=== PATIENT | female | born 1960 | race Caucasian/White ===

== ENCOUNTER 2023-09-21 06:13 | Day surgery (SDC) | payer OTHER, MEDICAID, SELFPAY ==
[2023-09-13 13:48] VITALS: BMI 37.0
[2023-09-21] VITALS (10 sets, daily range): BP systolic 110–176; BP diastolic 50–94; PULSE 80–99; RESP 16–20; TEMP 36.2–36.8; O2SAT 96–100; BMI 35.9
--- NOTE | 2023-09-21 06:00 | DI.RAD.S_ITS ---
PROCEDURE: XR KNEE LT 1TO2V INDICATIONS: left TKA TECHNIQUE: 2 view(s) of the knee acquired. COMPARISON: [facility] JIMMY Thomas, XR BONE LENGTH SCANOGRAM, 09/12/2023, 16:30. FINDINGS: Bones: Artifact from overlying material limits finer bony detail. Patient is status post knee joint arthroplasty. Hardware components are in expected positions. Visualized bony structures are intact. Soft tissues: Overlying postoperative changes are noted. IMPRESSION: Expected post-operative appearance of a knee arthroplasty. Dictated by: Brett Henriquez M.D. on 09/21/2023 at 12:49 Approved by: Brett Henriquez M.D. on 09/21/2023 at 12:50
[2023-09-21] MEDS: ACETAMINOPHEN 325 MG TABLET 975 MG PO (07:17)
[2023-09-21] MEDS: LACTATED RINGERS 1,000 ML 42 ML IV ×2 (07:17→10:22)
--- NOTE | 2023-09-21 07:39 | PM.PREOP ---
Pre-operative Note Interval Note History & Physical reviewed/Exam performed by Physician: Yes Changes to H&P: No
[2023-09-21] MEDS: CEFAZOLIN 2 GM/100 ML PREMIX 100 ML IV ×3 (07:50→23:59)
[2023-09-21] MEDS: TRANEXAMIC ACID 1,000 MG VIAL 1000 MG INJ (08:00)
--- NOTE | 2023-09-21 08:29 | SUR.OPER ---
Supine on padded OR bed, head on pillow, arms secured on padded arm boards at <90 degrees abduction, legs uncrossed, safety belt at thigh, tape over blanket over lower RIGHT LEG.
[2023-09-21] MEDS: ROPIVACAINE/EPI/CLONIDINE/KET 50 ML SYRINGE INJ (08:34)
--- NOTE | 2023-09-21 10:16 | P.OP_ITS ---
Operative Date/Time/Diagnoses Date of procedure: 09/21/23 Pre-op diagnosis: Left knee arthritis Post-op diagnosis: same Procedure & Clinicians Procedure: Left total knee arthroplasty (63058) Same procedure as scheduled: Yes Surgeon: Aj Arreaga Slide Machine Tender: Saima Marquez Anesthesia Type: Spinal, Sedation, Peripheral nerve block and Local Operative Notes Estimated Blood Loss (mL): 150 Tourniquet time (min): 76 Procedure in detail: Implants: Jostin Persona Medial Congruent Total Knee Arthroplasty: * Size 5 Cruciate Retaining Femoral Component * Size D Tibial Component with 14 mm x 30 mm stem extension * Size 16 Medial Congruent Polyethylene Insert * Unresurfaced Patella Procedure Summary: Significant medial wear resulted in a very thin cut on the medial side with a large cut on the lateral side. This was double-checked after making the cut and was in neutral mechanical alignment. Gap testing in extension noted 7? of tightness medially. This was addressed with a posterior medial release as well as resection of medial tibial osteophytes. This reduced the imbalance to 5? of tightness medially. I therefore recut the tibia in 2? of additional varus. This reduced the imbalance to 3? of tightness medially. As there were large posterior osteophytes I felt that eventual resection of those would result in improved balance in extension. I therefore moved to flexion. Because of the significant amount of medial wear as well as the recut on the medial side, the tensioner opened to 14 mm with 40 lb of pressure. I set the flexion gap with 40 lb of pressure as well and drilled 14 mm holes. Balance was appropriate with a 16 mm polyethylene trial. After final cementation I did trial with an 18 mm polyethylene however I found that this put excessive tension on the extensor mechanism. I therefore implanted a 16 mm medial congruent polyethylene. Procedure in Detail: This patient was seen preoperatively and evaluated for knee pain which was refractory to numerous nonoperative treatment modalities. Their hip pain correlated with radiographic changes demonstrating significant degeneration in the knee joint. The risks and benefits of continued nonoperative management versus operative management were discussed at length and all of the patient?s questions were answered. Additional educational materials providing further details beyond our discussion in clinic were provided via a publicly available patient education video which included the incidence of medical complications associated with total knee arthroplasty, reasons for revision following total knee arthroplasty, and patient satisfaction rates following total knee arthroplasty. That video can be accessed at [email or web address] . With this understanding of the risks inherent to the procedure, the patient elected to move forward with operative management. Following preoperative optimization, the patient was scheduled for surgery. The patient was met in the preoperative holding area the day of the procedure and all questions were answered. The patient?s nares were swabbed with betadine in order to decolonize them from MRSA. Informed consent was signed and the operative limb was marked with indelible ink.? The patient was brought back to the operating room where anesthesia was induced. The patient was transferred to the operating table and all bony prominences were padded. The operative site was prepped and draped in the usual sterile fashion. A second prep stick was utilized following drape placement. The incision was marked corresponding to the medial aspect of the tibial tubercle and the patella. Ioban was wrapped circumferentially around the knee. Prior to incision, tranexamic acid and cefazolin were administered. Templating images were displayed. A timeout procedure was performed verifying the patient?s identity, medical comorbidities, allergies, relevant medications, anesthesia type and the surgical plan. All present were in agreement. The assistance of a physician grants assistant was required for positioning, room setup, soft tissue retraction and wound closure. Without this assistance, the procedure would have been significantly more challenging and time consuming.?? The tourniquet was inflated prior to incision. I made an anterior incision over the knee, dissected through the subcutaneous tissues and identified the lateral border of the VMO. Medial and lateral soft tissue flaps were developed. A medial parapatellar arthrotomy was performed ensuring that adequate capsular tissue would remain for closure at the conclusion of the procedure. The hip was brought into extension and the medial soft tissues were released off the joint line of the tibia. Tissue overlying the distal anterior femur was released to allow for later assessment for anterior notching but left in place. A portion of the retropatellar fat pad was excised while protecting the patellar tendon. The patella was everted. The patella was not resurfaced. Osteophytes were excised and a lateral facetectomy was performed. The patella was released from its everted position.?? I flexed the knee to 90 degrees and placed retractors to allow access to the notch. An opening reamer was used to gain access to the femoral canal and an intramedullary familia was introduced into the canal. Diaphyseal fit was obtained in order to allow a distal femoral resection at 5 degrees relative to the anatomic axis, thereby aiming to achieve mechanical alignment of the eventual implant. A +1 resection was planned and assessed using an jose wing. I then made the cut using a sagittal saw. This provided additional access to the femoral notch. The ACL and PCL were excised. Retractors were placed on the lateral and medial tibia. I hyperflexed the knee while externally rotating it to sublux the tibia anteriorly. I placed a PCL retractor posteriorly and used this to provide additional anterior subluxation. The remainder of the PCL root was released. An intramedullary reamer was used in the ACL footprint to provide access to the tibial canal. An extramedullary guide was positioned to allow a resection perpendicular to the anatomic and mechanical axes of the tibia, thereby aiming to achieve mechanical alignment of the eventual implant. A +4 resection off the medial tibia was planned and the tibial cutting jig was pinned in place. I evaluated the cut depth, varus-valgus alignment and slope of the planned tibial resection and deemed them satisfactory. I cut the tibia with a sagittal saw while using retractors to protect the MCL, patellar tendon, and posterolateral structures.? The knee was repositioned in extension and the Fuzion soft tissue balancing gauge was introduced. This demonstrated that imbalance. This was addressed with a posterior medial release and subsequently we cutting the tibia in 2? of additional varus. After these were performed, there was still slight tightness medially of approximately 3?. The tensioner would open to approximately 5 medially and approximately 9 laterally. I felt that this would improve with posterior osteophyte resection. When 40 pounds of force was applied to the Fuzion device, the extension gap opened to 14 mm. I moved the knee into 90 degrees of flexion, and the Fuzion device was recalibrated by removing a 9 mm myke to allow assessment of the flexion gap. The Fuzion was placed perpendicular to the resected surface of the tibia and the resected surface of the distal femur. Forty pounds of traction was applied to match the tension of the extension gap. This externally rotated the femur to 7 degrees. Pins were placed in the 14 mm holes. The measured resection guide was placed over the pins to allow sizing. Appropriate sizing was determined and a 4-in-1 block was placed. This was double checked using the Fuzion device to ensure that it would open to an equal distance as the extension gap when the same amount of force was appli ed. The Fuzion block was also used to assess flexion gap symmetry. An jose wing was used to ensure there would be no anterior notching. Retractors were placed to protect the soft tissues during resection. Captured cuts were performed with a sagittal saw for the anterior and posterior femur as well as the corresponding chamfers.? Trial components were placed and the construct was assessed. Range of motion was assessed by ensuring the knee could achieve full extension and assessing maximum passive knee flexion by elevating the femur and allowing the heel to passively fall towards the buttock. Gap symmetry was assessed by stressing the medial and lateral compartments in both extension and flexion. Laxity was assessed in both extension and flexion and the polyethylene trial was adjusted with shims as necessary. Patellar tracking was assessed with knee flexion. Once satisfied with the construct, I moved forward with implant insertion. Lug holes were drilled in the femur and the tibia was prepped ensuring appropriate sizing and rotation relative to the tibial tubercle.?? The bony ends were irrigated and cement was prepared. Portions of the anterior chamfer cut were utilized as cement restrictors in the femur and tibia where intramedullar rods had been utilized. Cement was placed on the entirety of the undersurface of both the tibial and femoral components. Cement was placed onto the dry tibia and pressurized into the cancellous bone. I impacted the tibial component into place. Cement was removed. The tibia was reduced underneath the femur and placed cement onto the dry surface of the resected femur. I placed the femoral component as well as the intended polyethylene trial. Cement was removed from around the femur. I brought the knee into extension and manually pressurize d the construct by pushing on the heel while the cement dried. The knee was bathed in a dilute mixture of betadine and peroxide. A mixture of Ropivacaine, Epinephrine, Clonidine and Toradol was infiltrated throughout the soft tissues into structures including the VMO, patellar tendon, quadriceps tendon, MCL and femoral periosteum. A low adductor canal block was also performed using this mixture unless one had been placed preoperatively by anesthesia. The knee was copiously irrigated with pulse lavage. Once cement had been allowed to dry the knee was again trialed. Range of motion was assessed by ensuring the knee could achieve full extension and assessing maximum passive knee flexion by elevating the femur and allowing the heel to passively fall towards the buttock. Gap symmetry was assessed by stressing the medial and lateral compartments in both extension and flexion. Laxity was assessed in both extension and flexion and the polyethylene trial was adjusted with shims as necessary. Patellar tracking was assessed with knee flexion. The tourniquet was let down and the polyethylene trial was removed. I inspected the knee inspected for excess cement and any residual bleeding. Once hemostasis was achieved I inserted the final polyethylene and ensured appropriate engagement of the dovetail locking mechanism.?? The arthrotomy was closed with absorbable interrupted suture ensuring that this extended to the top of the arthrotomy. This was backed up with running barbed suture throughout the arthrotomy. The skin was closed with 2-0 and 3-0 sutures. Surgical glue was applied and a soft dressing was placed.?The sponge, instrument and needle counts were reported as being correct at the end of the case.??No obvious complications occurred. The patient was transferred from the operating table back to a stretcher. The patient emerged from anesthesia without difficulty and was taken to the PACU in a stable condition.? Plan for aftercare: * Weightbearing as tolerated * Mobilization as soon as the patient has recovered from anesthesia. If physical therapists are unavailable at the time the patient is ready to ambulate, then nursing staff should help patient ambulate * Aspirin 81 twice per day for DVT prophylaxis * Multimodal pain regimen with no IV opioids ordered * Anticipate discharge home most likely tomorrow * Follow up at [facility] in 2 weeks * Detailed postoperative instructions available at [email or web address]
--- NOTE | 2023-09-21 11:36 | PC.NURSE ---
Pt arrived from PACU at 1105, A&Ox4, no c/o pain, VSS on RA. Tuan wrap dressing to L knee intact, ice machine in place. C/o tingling to L foot but able to wiggle toes. Lungs CTA, no SOB, no N/V. Patient and family member oriented to room and call light. SCDs on, bed in low position, call light within reach.
[2023-09-21] MEDS: ACETAMINOPHEN 325 MG TABLET 650 MG PO ×3 (11:40→23:58)
[2023-09-21] MEDS: LACTATED RINGERS 1,000 ML 100 ML IV ×2 (11:41→21:30)
[2023-09-21] MEDS: TRAMADOL 50 MG TABLET PO (12:13)
--- NOTE | 2023-09-21 13:10 | PT.IIE ---
Current Diagnoses Unilateral primary osteoarthritis, left knee (09/21/23) Surgery Performed Operation Date: 09/21/23 07:45 Actual Procedures p Total Knee Arthroplasty(Left) - Aj Arreaga MD Surgical History (Last Updated 09/14/23 @ 07:42 by Franchesca Barrios RN) H/O: hysterectomy (2012) History of 2 sections History of gynecologic surgery Hx of parathyroidectomy (12/17/20) Hx of tonsillectomy Medical History (Last Updated 09/14/23 @ 07:42 by Franchesca Barrios RN) Acid reflux ADHD Anxiety Asthma Auditory hallucination Chronic kidney disease (CKD) Cognitive changes Depression Diverticulitis Elevated blood pressure reading without diagnosis of hypertension Fibromyalgia Hemorrhage of vocal cord History of multiple pulmonary nodules HLD (hyperlipidemia) Kidney stone Memory deficit Mild cognitive impairment Osteoarthritis PFO (patent foramen ovale) PTSD (post-traumatic stress disorder) TBI (traumatic brain injury) (2009) Physical Therapy Inpatient Evaluation/Re-Eval M1 PT/OT-IP Prior Functional Status Start: 09/21/23 15:25 Freq: NEEDED Status: Active Protocol: Document 09/21/23 13:10 AB (Rec: 09/21/23 15:40 AB [id number]) Medical Review Prior Functional Status Medical History Reviewed Yes Communication able to make needs known Mobility and Gait pt stated that she was modified independent with all mobilities and ambulation usint a SPC Social History Household Members friend(s) Living Arrangements House Number of Floors (Floors) One Floor Number of Stairs To Enter/Railing? 2 platform steps to enter the house Home Environment Standard Height Toilet,Tub/ Shower Home Equipment Front Wheel Walker,Four Wheel Walker,Straight Cane,Shower Seat with Backrest,Hand Held Shower Additional Social History Comment pt has a roommate/best friend Samy who will assist her at home pt has outpt PT set up M2 PT-IP Current Condition Start: 09/21/23 15:25 Freq: NEEDED Status: Active Protocol: Document 09/21/23 13:10 AB (Rec: 09/21/23 15:40 AB [id number]) Physical Therapy Current Condition Current Condition Evaluation Date 09/21/23 Treatment Diagnosis s/p L TKA; difficulty in walking Onset Date 09/21/23 M3 PT-IP Subjective Start: 09/21/23 15:25 Freq: NEEDED Status: Active Protocol: Document 09/21/23 13:10 AB (Rec: 09/21/23 15:40 AB [id number]) Subjective Physical Therapy Visit Type Type Initial Evaluation Visit Start Time 13:10 Visit Stop Time 14:25 Number of CYLINDER DEVALVER Visits 0 Physical Therapy Visit Comments Patient Comments agreeable to do PT Therapy Pain Assessment Pain When Pain Assessed At Rest Pain Present Pain Present Pain Reported Location L knee Intensity 4 Scale Used increases to 6/10 with movement Pain Behaviors Guarding,Holding Area Pain Management Techniques Apply Cold,Distraction, Modification of Treatment,Re- positioning,Timing of Activity with Medications M4 PT-IP Mobility and Gait Start: 09/21/23 15:25 Freq: NEEDED Status: Active Protocol: Document 09/21/23 13:10 AB (Rec: 09/21/23 15:40 [id number]) PT-Bed Mobility Assessment Supine to Sit Supine to Sit Standby Assistance PT-Transfer Assessment Sit to and From Stand Sit to and from Stand Contact Guard Assistance,1 Person Assistance,Use of Upper Extremities Equipment Transfer Assistive Device Gait Belt,Front Wheeled Walker Orthotic/Prosthetic Devices or Brace: No Transfers Transfer Destination Chair Transfer Technique ambulated Transfer Ability Level of Assist Contact Guard Assistance,Use of Upper Extremities Comments Mobility Comments pt supine in bed and agreeable to do PT. pt's friend Samy in room and will be assisting pt at home. obtained PLOF and home set up from pt. Completed heel slides prior to mobility and educated pt's friend on how to assist pt. pt completed supine to sit SBA . able to sit on EOB CGA. slight posterior lean needing repeated cues to keep body centered. post-op folder provided to pt and reviewed contents. reviewed HEP with pt. pt completed sit to stand CGA and ambulated ~ 8 ft in room using FWW CGA. pt sat on the EOB. pt agreed to do stairs. educated pt and friend on stair climbing techniques. caregiver training conducted. educated friend on how to use safety belt and how to assist pt. friend was able to put safety belt on pt, assisted pt with sit to stand and ambulated pt towards platform step. pt completed up/down platform step using FWW min A with friend assisting but required cues from PT for techniques and safety. pt repeated again with friend providing cues. pt ambulated back to her room ~ 35 ft using fWW CGA. completed sit to supine SBA. positioned pt in bed. Left pt with OT. Gait Assessment Gait Gait Assistance Required: Contact Guard Assist Distance (Feet) 35 Able to Maintain Weight Bearing Status Yes During Gait Assistive Devices Assistive Device Gait Belt,Front Wheeled Walker Orthotic/Prosthetic Devices or Brace: No Gait Deviations General Gait Pattern Antalgic,Decreased Stride Length,Decreased Feet Clearance,Step-to Gait Factors Limiting Gait Function Factors Limiting Gait Function Decreased Activity Tolerance, Decreased Strength,Limited Range of Motion,Pain,Poor Balance,Poor Safety Awareness Stair Climbing Assessment Evaluation Level of Assist On Stairs Minimal Assistance Devices Stair Climbing Assistive Devices Front Wheel Walker Technique/Endurance Stair Climbing Direction Ascend and Descend Stair Climbing Technique Step to Step Number of Steps Climbed 1 Query Text: Stair Climbing Set # Repetitions (reps) 2 PT-Balance Assessment Sitting Balance and Reactions Static Sitting Balance Ability Normal Dynamic Sitting Balance Ability Good Standing Balance and Reactions Static Standing Balance Ability Fair Dynamic Standing Balance Ability Fair Device Used FWW M5 PT-IP Objective Assessments Start: 09/21/23 15:25 Freq: NEEDED Status: Active Protocol: Document 09/21/23 13:10 AB (Rec: 09/21/23 15:40 AB [id number]) Orientation Orientation/Cognition Level of Alertness Alert Orientation Place,Situation Language Function Ability No Deficits Noted Safety Awareness Decreased Safety Awareness Memory Description No Deficits Noted Gross Range of Motion Lower Extremity ROM Assessment Left Impaired Impairments L knee flexion: ~ 50 deg Strength Lower Extremity Strength Assessment Left Impaired Hip 4-/5 Knee 3+/5 Sensation Assessment Sensation Gross Sensation WNL Muscle Tone Muscle Tone WNL Yes M6 PT-IP Treatment Start: 09/21/23 15:25 Freq: NEEDED Status: Active Protocol: Document 09/21/23 13:10 AB (Rec: 09/21/23 15:40 AB [id number]) Physical Therapy Treatment Education Education Provided Precautions,Weight Bearing Status,Post-Op Packet,Safety M7 PT-IP Assessment and Plan Start: 09/21/23 15:25 Freq: NEEDED Status: Active Protocol: Document 09/21/23 13:10 AB (Rec: 09/21/23 15:40 AB [id number]) PT Summary Assessment and Plan Potential Rehabilitation Potential Fair Status of Condition at Evaluation Evolving Summary Impairments Pain,ROM,Strength,Balance, Coordination,Sensation,Tone, Cognition,Bed Mobility, Transfers,Gait,Activity Tolerance Assessment Summary Pt is a 63 y/o F s/p L TKA POD . Pt is WBAT on LLE. pt requiring CGA with transfers and ambulation using fWW and min A for stair climbing. caregiver training conducted and pt's friend was able to assist pt safely. pt with c/o increase pain with mobility requiring increase time to complete all tasks. pt may go home when medically stable. pt stated that she has outpt PT set up. Goals Bed Mobility Goal Independent Transfer Goal Independent,Front Wheeled Walker Gait Goal Independent,Front Wheel Walker Gait Distance 200 Other Goals up/down 2 platform steps mod I using FWW Days to Meet Goals 5 Frequency of Treatment Frequency Of Treatment Twice a Day Treatment Plan Physical Therapy Treatment Plan Bed Mobility Training,Transfer Training,Gait Training, Therapeutic Exercise,Balance Retraining,Post Op Education, Discharge Planning,Hot or Cold Pack,Neuromuscular Re-ed, Coordination Retraining,Manual Therapy Weight Bearing Status Weight Bearing Status Weight Bear as Tolerated Allowed Weight Bearing Amount (enter % LLE WBAT or #) (%) Recommendations To Nursing Amount of Assist Needed 1 Person Assist Discharge Recommendations PT Discharge Recommendations Home with Assistance, Outpatient PT Transportation Needs at Discharge Private Vehicle
[2023-09-21] MEDS: OXYCODONE IR 5 MG TABLET PO ×2 (14:28→21:31)
--- NOTE | 2023-09-21 14:38 | OT.IP.EVAL ---
Current Diagnoses Unilateral primary osteoarthritis, left knee (09/21/23) Surgery Performed Operation Date: 09/21/23 07:45 Actual Procedures p Total Knee Arthroplasty(Left) - Aj Arreaga MD Past Medical History (Last Updated 09/14/23 @ 07:42 by Franchesca Barrios, RN) Acid reflux ADHD Anxiety Asthma Auditory hallucination Chronic kidney disease (CKD) Cognitive changes Depression Diverticulitis Elevated blood pressure reading without diagnosis of hypertension Fibromyalgia Hemorrhage of vocal cord History of multiple pulmonary nodules HLD (hyperlipidemia) Kidney stone Memory deficit Mild cognitive impairment Osteoarthritis PFO (patent foramen ovale) PTSD (post-traumatic stress disorder) TBI (traumatic brain injury) (2009) Surgical History (Last Updated 09/14/23 @ 07:42 by Franchesca Barrios RN) H/O: hysterectomy (2012) History of 2 sections History of gynecologic surgery Hx of parathyroidectomy (12/17/20) Hx of tonsillectomy Occupational Therapy Inpatient Evaluation/Re-Eval M1 PT/OT-IP Prior Functional Status Start: 09/21/23 15:55 Freq: NEEDED Status: Active Protocol: Document 09/21/23 15:57 [facility] (Rec: 09/21/23 16:15 [facility] [id number]) Medical Review Prior Functional Status Medical History Reviewed Yes Communication able to make needs known Mobility and Gait pt stated that she was modified independent with all mobilities and ambulation using a SPC Activities of Daily Living and IADL's Pt states able to do all ADL needs on her own and was not driving due to on pain meds. Social History Household Members friend(s) Living Arrangements House Number of Floors (Floors) One Floor Number of Stairs To Enter/Railing? 2 platform steps to enter the house Home Environment Standard Height Toilet,Tub/ Shower Home Equipment Front Wheel Walker,Four Wheel Walker,Straight Cane,Shower Seat with Backrest,Hand Held Shower,Orthopaedic Nurse,Sock Aid Additional Social History Comment pt has a roommate/best friend Samy who will assist her at home pt has outpt PT set up M2 OT-IP Current Condition Start: 09/21/23 15:55 Freq: Status: Active Protocol: Document 09/21/23 15:57 [facility] (Rec: 09/21/23 16:15 [facility] [id number]) Occupational Therapy Current Condition Current Condition Evaluation Date 09/21/23 Treatment Diagnosis S/P L TKA Diagnosis Onset Date 09/21/23 M3 OT- IP Subjective and Pain Start: 09/21/23 15:55 Freq: Status: Active Protocol: Document 09/21/23 15:57 [facility] (Rec: 09/21/23 16:15 [facility] [id number]) OT- Subjective Occupational Therapy Visit Type Type Initial Evaluation Visit Start Time 13:30 Visit Stop Time 14:38 Occupational Therapy Visit Comments Patient Comments Pt agreed to get up and her friend in the room for caregiver training. Patient/Caregiver Goals TO go home. OT Pain Assessment Pain When Pain Assessed During Mobility Pain Present Pain Present Pain Reported Location L knee Intensity 6 Scale Used Numeric (0 - 10) M4 OT- IP ADL's Start: 09/21/23 15:55 Freq: Status: Active Protocol: Document 09/21/23 15:57 [facility] (Rec: 09/21/23 16:15 [facility] [id number]) OT [id number] General Evaluation Self-Feeding Ability Independent OT ADL-Grooming Comments OT Grooming Comments Not performed. OT ADL-Oral Care Comments Oral Care Comments Not performed. OT ADL-Dressing General Eval Lower Body Dressing Ability Maximum Assistance Areas Needing Assistance Socks,Shoes Comments OT Dressing Comments Able to show pt use of LB dressing equipment and practice as her friend has some to allow her to use. Educated best to dress left leg side first and take out last. Also educated pt to be careful not to twist her knee during ADL needs. OT ADL-Toileting Comments OT Toileting Comments Suggested pt call for assist to go to the bathroom at home and best to get a BSC as will be easier to come to stand and also can be placed next to the bed. OT ADL-Bathing Comments OT Bathing Comments Pt states preop PT suggested to sit down on the tub ledge and then get over to the shower chair. At this time will be safer for pt to use a tub bench or have her friends assist her. On eval pt sitting with some posterior lean initially and would be a fall risk to sit on the tub edge at this time. M5 OT- IP IADL's Start: 09/21/23 15:55 Freq: Status: Active Protocol: Document 09/21/23 15:57 [facility] (Rec: 09/21/23 16:15 [facility] [id number]) OT-Instrumental Activities of Daily Living Deficits IADL Deficits Identified Deficits Home Safety Awareness Awareness of Need for Assistance at Home Good Awareness Ability to Problem Solve Emergency Able to Problem Solve Situations Medication Management Medication Management Comments Pt's friends able to assist as needed. Money Management Money Management Comments Pt's friends able to assist as needed. Meal Preparation Meal Preparation Caregiver Provides Assist Web Engineer Web Engineer Caregiver Provides Assist M6 OT- IP Functional Cognition Start: 09/21/23 15:55 Freq: Status: Active Protocol: Document 09/21/23 15:57 [facility] (Rec: 09/21/23 16:15 [facility] [id number]) Cognitive Factors Limiting Selfcare Function Cognitive Ability Level of Alertness Alert Patient Orientation Name,Age,Birthday,Month,Date, Year,Day of Week,Place, Situation Attention Span Ability Capable of Focused Attention, Capable of Sustained Attention Cognitive Comments Cognitive Assessment Comments Pt needing vc for FWW safety and for hand placement. OT- Vision and Hearing OT- Hearing Assessment OT- Hearing Assessment WFL M7 OT- IP Mobility and Balance Start: 09/21/23 15:55 Freq: Status: Active Protocol: Document 09/21/23 15:57 [facility] (Rec: 09/21/23 16:15 [facility] [id number]) OT- Bed Mobility Assessment Supine to Sit Supine to Sit Assist Contact Guard Assistance OT-Transfer Assessment Sit to and From Stand Sit to and from Stand Contact Guard Assistance Transfers Transfer Ability Contact Guard Assistance Technique Transfer Destination Bed Transfer Technique Stand Step Pivot Devices Transfer Assistive Devices Gait Belt,Front Wheeled Walker Comments Mobility Comments CGA for sit to stand to the FWW and for the transfer. Pt's friend able to safely assist for for all mobility needs. OT- Balance Assessment Sitting Balance and Reactions Static Sitting Balance Ability Good Dynamic Sitting Balance Ability Fair Standing Balance and Reactions Static Standing Balance Ability Fair Dynamic Standing Balance Ability Fair M8 OT- IP Objective Assessments Start: 09/21/23 15:55 Freq: Status: Active Protocol: Document 09/21/23 15:57 [facility] (Rec: 09/21/23 16:15 [facility] [id number]) OT Gross Range of Motion Upper Extremity Range of Motion Assessment Within Functional Limits OT Strength Upper Extremity Strength Assessment Within Functional Limits M9 OT- IP Assessment and Plan Start: 09/21/23 15:55 Freq: Status: Active Protocol: Document 09/21/23 15:57 [facility] (Rec: 09/21/23 16:15 [facility] [id number]) OT Summary Assessment and Plan Potential Rehabilitation Potential Good Analytic Complexity at Evaluation Low Summary OT Impairments Pain,Balance,Functional Mobility,Dressing,Toileting, Bathing,Toilet Transfers, Shower Transfers Progress Towards Goals Progressing Toward Goals Assessment Summary Pt low complexity and main barriers are pain and will be needing assist for ADl and mobility needs at this time as a little unsteady on her feet . Pt's friend to be with her for the next week and other friends to check on her and assist. Pt will benefit from a BSC, tub bench if not able to get her LLE over the tub and borrow her friend's LB dressing equipment. Pt to go home with assist and have outpt PT. Goals Grooming Goal Independent Dressing Goal Independent Toileting Goal Independent Bathing Goal Independent Toilet Transfer Goal Independent Shower Transfer Goal Independent Days to Meet Goals 7 Frequency of Treatment Frequency Of Treatment Once a Day Treatment Plan OT Treatment Plan ADL Training,Functional Mobility,Patient/Family Education,Discharge Planning Discharge Recommendations OT Discharge Recommendations Home with Assistance, Outpatient PT Home Equipment Needs BSC, tub bench Transportation Needs at Discharge Private Vehicle
[2023-09-21] MEDS: ZIPRASIDONE HCL 80 MG 80 EACH PO (19:02)
[2023-09-21] MEDS: ASPIRIN EC 81 MG TABLET PO (21:30)
[2023-09-21] MEDS: TOPIRAMATE 25 MG TABLET PO (21:30)
[2023-09-21] MEDS: DOCUSATE 100 MG CAPSULE PO (21:31)
[2023-09-21] MEDS: ATORVASTATIN 20 MG TABLET 10 MG PO (21:31)
[2023-09-21] MEDS: hydrOXYzine HCL 25 MG TABLET 100 MG PO (21:32)
[2023-09-22] VITALS: BP 136/80; PULSE 72; RESP 16; TEMP 37; O2SAT 96
[2023-09-22] MEDS: OXYCODONE IR 5 MG TABLET PO (03:17)
[2023-09-22 05:00] VITALS: BP 136/74; PULSE 66; RESP 16; TEMP 36.6; O2SAT 97
[2023-09-22] MEDS: ACETAMINOPHEN 325 MG TABLET 650 MG PO ×2 (05:41→10:41)
[2023-09-22] MEDS: PANTOPRAZOLE DR 20 MG TABLET PO (05:41)
[2023-09-22 05:42] LABS: Hematocrit 31.3 % (36-46); Hemoglobin 10.8 g/dL (12.0-16.0)
[2023-09-22 08:00] VITALS: BP 115/57; PULSE 75; RESP 20; TEMP 35.8; O2SAT 100
[2023-09-22] MEDS: ASPIRIN EC 81 MG TABLET PO (08:39)
[2023-09-22] MEDS: FOLIC ACID 1 MG TABLET 0.5 MG PO (08:39)
[2023-09-22] MEDS: DOCUSATE 100 MG CAPSULE PO (08:40)
[2023-09-22] MEDS: TRAMADOL 50 MG TABLET PO (08:40)
[2023-09-22] MEDS: polyethylene glycoL 3350 17 GM POWD.PACK PO (08:40)
--- NOTE | 2023-09-22 08:50 | PT.IPTN ---
Current Diagnoses Unilateral primary osteoarthritis, left knee (09/21/23) Surgery Performed Operation Date: 09/21/23 07:45 Actual Procedures p Total Knee Arthroplasty(Left) - Aj Arreaga MD Physical Therapy Treatment Note M2 PT-IP Current Condition Start: 09/21/23 15:25 Freq: NEEDED Status: Active Protocol: Document 09/21/23 13:10 [facility] (Rec: 09/21/23 15:40 [facility] [id number]) Physical Therapy Current Condition Current Condition Evaluation Date 09/21/23 Treatment Diagnosis s/p L TKA; difficulty in walking Onset Date 09/21/23 M3 PT-IP Subjective Start: 09/21/23 15:25 Freq: NEEDED Status: Active Protocol: Document 09/22/23 09:25 Z[facility] (Rec: 09/22/23 09:38 [facility] [id number]) Subjective Physical Therapy Visit Type Type Treatment Note Visit Start Time 08:50 Visit Stop Time 09:23 Number of SHOW HOST OR HOSTESS Visits 1 Physical Therapy Visit Comments Patient Comments Pt reports that she just received her pain meds and is agreeable to therapy. Therapy Pain Assessment Pain When Pain Assessed During Mobility Location L knee Pain Management Techniques Apply Cold,Distraction, Modification of Treatment,Re- positioning,Timing of Activity with Medications M4 PT-IP Mobility and Gait Start: 09/21/23 15:25 Freq: NEEDED Status: Active Protocol: Document 09/22/23 09:25 ZF (Rec: 09/22/23 09:38 ZF [id number]) PT-Bed Mobility Assessment Sit to Supine Sit to Supine Standby Assistance PT-Transfer Assessment Sit to and From Stand Sit to and from Stand Contact Guard Assistance,1 Person Assistance,Use of Upper Extremities Equipment Transfer Assistive Device Gait Belt,Front Wheeled Walker Orthotic/Prosthetic Devices or Brace: No Transfers Transfer Destination Bed Transfer Technique Stand Step Pivot Transfer Ability Level of Assist Contact Guard Assistance,1 Person Assistance,Use of Upper Extremities Comments Mobility Comments Pt in recliner with ice compression device on L LE. Pt agreeable to therapy. Pt's friend in room and will be providing assist at home. He donns gait belt and provides CGA for STS from recliner. Pt amb x20', x35' in room w/2ww, CGA. Pt asc/maryan one platform step using 2ww, w/CGA provided by friend. Therapist providing cues for proper foot position and AD positioning, w/good carryover. Pt declines second trial due to discomfort , but both patient and friend report feeling good about managing the x2 steps at home. Pt returns to bed, Sitting EOB>Supine is SBA. Reviewed HEP w/patient, she completes heel slides, SLR, SAQ x10 reps . Vitals monitored w/activity and remained WNL. Repositioned ice cuff on L LE, call light within reach, all needs met. Gait Assessment Gait Gait Assistance Required: Contact Guard Assist Distance (Feet) 55 Able to Maintain Weight Bearing Status Yes During Gait Assistive Devices Assistive Device Gait Belt,Front Wheeled Walker Orthotic/Prosthetic Devices or Brace: No Gait Deviations General Gait Pattern Antalgic,Decreased Stride Length,Decreased Feet Clearance,Step-to Gait Factors Limiting Gait Function Factors Limiting Gait Function Decreased Activity Tolerance, Decreased Strength,Limited Range of Motion,Pain,Poor Balance,Poor Safety Awareness Stair Climbing Assessment Evaluation Level of Assist On Stairs Contact Guard Assistance Devices Stair Climbing Assistive Devices Front Wheel Walker Technique/Endurance Stair Climbing Direction Ascend and Descend Stair Climbing Technique Step to Step Number of Steps Climbed 1 Stair Climbing Set # Repetitions (reps) 1 PT-Balance Assessment Sitting Balance and Reactions Static Sitting Balance Ability Good Dynamic Sitting Balance Ability Fair Standing Balance and Reactions Static Standing Balance Ability Fair Dynamic Standing Balance Ability Fair Device Used FWW M5 PT-IP Objective Assessments Start: 09/21/23 15:25 Freq: NEEDED Status: Active Protocol: Document 09/21/23 13:10 [facility] (Rec: 09/21/23 15:40 [facility] [id number]) Orientation Orientation/Cognition Level of Alertness Alert Orientation Place,Situation Language Function Ability No Deficits Noted Safety Awareness Decreased Safety Awareness Memory Description No Deficits Noted Gross Range of Motion Lower Extremity ROM Assessment Left Impaired Impairments L knee flexion: ~ 50 deg Strength Lower Extremity Strength Assessment Left Impaired Hip 4-/5 Knee 3+/5 Sensation Assessment Sensation Gross Sensation WNL Muscle Tone Muscle Tone WNL Yes M6 PT-IP Treatment Start: 09/21/23 15:25 Freq: NEEDED Status: Active Protocol: Document 09/22/23 09:25 ZF (Rec: 09/22/23 09:38 ZF [id number]) Physical Therapy Treatment Education Education Provided Precautions,Weight Bearing Status,Safety M7 PT-IP Assessment and Plan Start: 09/21/23 15:25 Freq: NEEDED Status: Active Protocol: Document 09/22/23 09:25 [facility] (Rec: 09/22/23 09:38 ZF [id number]) PT Summary Assessment and Plan Potential Rehabilitation Potential Fair Summary Impairments Pain,ROM,Strength,Balance, Coordination,Sensation,Tone, Cognition,Bed Mobility, Transfers,Gait,Activity Tolerance Assessment Summary Pt is CGA w/OOB mobility, SBA for bed mobility. She reports that her pain is managed. Pt's friend participated in caregiver training and is able to assist her at home. Recommending home DC w/assist and outpatient PT, which she has set up. Goals Bed Mobility Goal Independent Transfer Goal Independent,Front Wheeled Walker Gait Goal Independent,Front Wheel Walker Gait Distance 200 Other Goals up/down 2 platform steps mod I using FWW Days to Meet Goals 5 Frequency of Treatment Frequency Of Treatment Twice a Day Treatment Plan Physical Therapy Treatment Plan Bed Mobility Training,Transfer Training,Gait Training, Therapeutic Exercise,Balance Retraining,Post Op Education, Discharge Planning,Hot or Cold Pack,Neuromuscular Re-ed, Coordination Retraining,Manual Therapy Weight Bearing Status Weight Bearing Status Weight Bear as Tolerated Allowed Weight Bearing Amount (enter % LLE WBAT or #) (%) Recommendations To Nursing Amount of Assist Needed Standby Assistance Discharge Recommendations PT Discharge Recommendations Home with Assistance, Outpatient PT Transportation Needs at Discharge Private Vehicle
--- NOTE | 2023-09-22 08:59 | PM.DS.1 ---
History of Present Illness History of Present Illness Date Patient Seen: 09/22/23 Time Patient Seen: 08:59 Chief complaint: Left TKA *OPB* Narrative: Operative Date/Time/Diagnoses Date of procedure: 09/21/23 Pre-op diagnosis: Left knee arthritis Post-op diagnosis: same Procedure & Clinicians Procedure: Left total knee arthroplasty (07173) Same procedure as scheduled: Yes Surgeon: Aj Arreaga Mower Mechanic: Saima Marquez Anesthesia Type: Spinal, Sedation, Peripheral nerve block and Local Operative Notes Estimated Blood Loss (mL): 150 Tourniquet time (min): 76 Procedure in detail: Implants: Jostin Persona Medial Congruent Total Knee Arthroplasty: Size 5 Cruciate Retaining Femoral Component Size D Tibial Component with 14 mm x 30 mm stem extension Size 16 Medial Congruent Polyethylene Insert Unresurfaced Patella Discharge Providers Provider Discharge Date: 09/22/23 Primary care physician: Chloe Sena PA-C Consults: 09/21/23 06:00 Consult to Anesthesiology Routine Comment: Consulting Provider: Anesthesiologist Reason for consultation: Regional block for post operative pain control 09/21/23 11:14 Consult to Discharge Planning Routine Comment: Consult to Occupational Therapy Evaluate & Treat Comment: Physician Instructions: Evaluate and treat Consult to Physical Therapy Evaluate & Treat Comment: Physician Instructions: postop TKA protocol Discharge provider: Cierra Mcknight PA-C Summary Hospital Course Discharge Diagnosis: Left knee osteoarthritis, s/p left total knee arthroplasty Hospital Course: Ms [place] hospital course was unremarkable. On the morning of POD# 1, she was feeling well and wanted to go home. She was eating and voiding without difficulty. She was evaluated by PT and felt to be appropriate for discharge home with family. She was interviewed and examined by Dr Arreaga as well. Exam Vital Signs (past 8 hours): - 09/22/23 05:00 09/22/23 08:00 Temperature 97.8 F 96.5 F L Pulse Rate 66 75 Respiratory Rate 16 20 Blood Pressure 136/74 115/57 L Pulse Oximetry 97 100 Oxygen Flow Rate 0 0 Oxygen Delivery Method Room Air Oxygen Flow Rate 0 Narrative Exam Narrative: 5/5 strength in hip flexors, quadriceps, hamstrings, DF, PF, EHL on left. Sensation to light touch intact throughout LLE. Calf soft, compressible, nontender; SHINE over Aquacel CDI. Objective Labs 09/22/23 05:10 Labs: Laboratory Results - last 24 hr 09/22/23 05:10 Hgb 10.8 L Hct 31.3 L PFSH Medical History (Updated 09/14/23 @ 07:42 by Franchesca Barrios RN) Hemorrhage of vocal cord Osteoarthritis Cognitive changes Mild cognitive impairment TBI (traumatic brain injury) (2009) History of multiple pulmonary nodules Diverticulitis Auditory hallucination ADHD Anxiety Depression PTSD (post-traumatic stress disorder) Kidney stone Chronic kidney disease (CKD) Acid reflux PFO (patent foramen ovale) Elevated blood pressure reading without diagnosis of hypertension HLD (hyperlipidemia) Asthma Memory deficit Fibromyalgia Surgical History (Updated 09/14/23 @ 07:42 by Franchesca Barrios RN) Hx of parathyroidectomy (12/17/20) Hx of tonsillectomy H/O: hysterectomy (2012) History of gynecologic surgery History of 2 sections Social History household members: friend(s) Smoking Status: Never smoker alcohol intake: current Discharge Assessment & Plan Assessment and Plan Assessment: Left knee osteoarthritis, s/p left total knee arthroplasty Plan of Treatment: Discharge home after AM PT. Pt has d/c meds at home. ASA BID x 6 weeks for VTE prophylaxis, oupt PT, f/u in office in 2 weeks as scheduled. Discharge Plan Discharge Plan Patient Disposition: Home Discharge orders & Medications Discharge Orders: Discharge (Order); Ordered 09/22/23 Ordered By: Cierra Mcknight Prescriptions: Continued ziprasidone HCl 80 mg Capsule 80 mg PO BEDTIME Rx Instructions: give with food (meal/snack) hydroxyzine pamoate 100 mg Capsule 100 mg PO BEDTIME atorvastatin 10 mg Tablet 10 mg PO BEDTIME topiramate 25 mg Tablet 25 mg PO BEDTIME folic acid 400 mcg Tablet 0.4 mg PO BEDTIME acetaminophen 500 mg Tablet 500 - 1,000 mg PO Q6H PRN (Reason: Pain) albuterol sulfate 90 mcg/actuation Hfa Aerosol Inhaler 2 puff INHALATION Q4-6H PRN (Reason: Shortness Of Breath) omeprazole 20 mg Tablet,Delayed Release (/Ec) 20 mg PO BEDTIME Follow up/Referrals: Chloe Sena PA-C [Primary Care Provider] - Aj Arreaga MD [Physician] - 10/02/23 2:20 pm (Follow up w/ Dr Arreaga at [facility] in [facility] Diet/Activity/Treatments Diet: Diet as Tolerated Activity: Walk frequently! Weight bearing as tolerated. Cold/Heat Therapy: Ice to knee as needed for pain. Skin/Wound/Dressing Care Report to your healthcare provider any signs of infection, such as:: chills, fever, night sweats, unusual drainage and unusual redness Dressing: May remove SHINE wrap and shower on 09/24/2023. Leave dressing in place until follow up in office. No bathing or otherwise soaking incision. Call the office if the dressing becomes saturated inside. Visit Report/Discharge Packet Instructions: DI for Knee Replacement, DI for Prescription Opioid Use Stand Alone Forms: Patient Portal/API, Surgery Discharge Discharge Data Primary Care Provider: Chloe Sena Attending Provider: Aj Arreaga VTE Deep Vein Thrombosis/Pulmonary Embolism Present on Admission: No
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
== END 2023-09-22 11:25 | disposition home or self-care (01) ==
LOC: OR 06:19 → AC 06:19
PROVIDERS: Family Provider Family Medicine; PCP Physician Assistant; Referring Provider Nurse Practitioner Family; Visit Provider Orthopaedic Surgery Adult Reconstructive Orthopaedic Surgery
PROC: 0SRD0JZ Replacement of Left Knee Joint with Synthetic Substitute, Open Approach (ICD-10-PCS; CPT 27447; principal; 2023-09-21 07:45)
DX: M17.12 Unilateral primary osteoarthritis, left knee (principal); N18.32 Chronic kidney disease, stage 3b; M79.7 Fibromyalgia; E66.9 Obesity, unspecified; Z68.36 Body mass index [BMI] 36.0-36.9, adult
CPT/HCPCS: 27447; 36415; 73560; 85014; 85018; 97116; 97162; 97165; 97530; 97535; C1776; A9270; J0690; J1100; J2250; J2704; J3010

== ENCOUNTER 2024-05-09 06:07 | Day surgery (SDC) | payer OTHER, MEDICAID, SELFPAY ==
[2023-09-21 06:36] VITALS: BMI 35.9
[2024-05-08 08:49] VITALS: BMI 37.0
[2024-05-09] VITALS (11 sets, daily range): BP systolic 102–155; BP diastolic 51–86; PULSE 73–93; RESP 13–22; TEMP 36.1–37.2; O2SAT 96–100; BMI 37.9; BMI 39.1
--- NOTE | 2024-05-09 06:00 | DI.RAD.S_ITS ---
PROCEDURE: XR KNEE RT 1TO2V INDICATIONS: tka TECHNIQUE: 2 view(s) of the knee acquired. COMPARISON: [facility], CR, XR KNEE LT 1TO2V, 09/21/2023, 10:43. FINDINGS: Bones: Patient is status post knee joint arthroplasty. Hardware components are in expected positions. Visualized bony structures are intact. Soft tissues: Overlying postoperative changes are noted. IMPRESSION: Expected post-operative appearance of a knee arthroplasty. Dictated by: Kelvin Sosa M.D. on 05/10/2024 at 0:34 Approved by: Kelvin Sosa M.D. on 05/10/2024 at 0:34
[2024-05-09] MEDS: ACETAMINOPHEN 325 MG TABLET 975 MG PO ×2 (07:03→12:19)
[2024-05-09] MEDS: LACTATED RINGERS 1,000 ML 42 ML IV ×3 (07:03→13:19)
[2024-05-09] MEDS: MELOXICAM 7.5 MG TABLET 15 MG PO (07:04)
--- NOTE | 2024-05-09 07:40 | PM.PREOP ---
Pre-operative Note Interval Note History & Physical reviewed/Exam performed by Physician: Yes Changes to H&P: No
[2024-05-09] MEDS: CEFAZOLIN 2 GM/100 ML PREMIX 100 ML IV ×3 (07:41→23:34)
[2024-05-09] MEDS: TRANEXAMIC ACID 1,000 MG VIAL 2000 MG INJ ×2 (07:45→09:36)
--- NOTE | 2024-05-09 08:36 | SUR.OPER ---
Supine on padded OR bed. Pillow under head, arms secured on padded armboards <90 degree abduction. Safety belt across torso. Non-operative leg secured with tape over blanket over lower leg. Operative leg secured in Jair positioner. Foam padded brace at thigh of operative leg.
[2024-05-09] MEDS: BUPIVACAINE 0.25% (PF) 30 ML, EPINEPHrine 0.15 MG INJ (08:45)
[2024-05-09] MEDS: BUPIVACAINE LIPOSOME 266 MG/20 ML VIAL INJ (08:46)
--- NOTE | 2024-05-09 10:05 | PM.OP.1 ---
Operative Date/Time/Diagnoses Date of procedure: 05/09/24 Pre-op diagnosis: Right knee osteoarthritis Post-op diagnosis: same Procedure & Clinicians Procedure: Right total knee arthroplasty Same procedure as scheduled: Yes Surgeon: Aj Arreaga Printed Circuit Board Layout Designer: Saima Marquez Anesthesia Type: Spinal, Sedation, Peripheral nerve block and Local Operative Notes Estimated Blood Loss (mL): 200 Procedure in detail: Right Gap-Balanced Jostin Persona Medial-Congruent Primary Total Knee Arthroplasty Manipulation under anesthesia of left total knee arthroplasty Implants: Size 5 Cruciate Retaining Femoral Component Size C Tibial Component with 14 x 30 stem extension Size 14 Medial Congruent Polyethylene Insert 32 mm Patella Procedure Summary: This 64-year-old female patient required a posterior medial release on her contralateral side and ended up with a 16 mm polyethylene insert. In an attempt to end up with a smaller polyethylene insert on this side I took relatively small cuts and performed a posterior medial release. I initially took a 0 cut on the femur as she had full extension preoperatively and a 2 mm cut on the tibia. This was far too tight for me to fit in the smallest spacer block for this system so I took an additional 2 mm resection, found that it was still too tight, and took another 2 mm resection to end up with a +6 cut off of the medial side. There was still excess medial tightness at that point in time so I took a 2 mm varus recut which improved the gap balancing. She had a very large flap of cartilage on her patella with a burnished bone below and when I resected this there was a large step-off in her patellofemoral joint. As she had struggled with her rehabilitation on the other side I did not want to leave her with a potential pain generator and therefore elected intraoperatively to resurface her patella. Additionally she requested that I perform a manipulation under anesthesia of her left side prior to the surgery today. I estimated the flexion in her knee at 110? and discussed with her that the results of a manipulation under anesthesia this far out from surgery can have limited benefit, however as she was already going to be under anesthesia I did proceed with it. I used a relatively gentle technique and did not attempt to push extremely hard into flexion. I estimate that she gained 10? of passive flexion from that manipulation which I performed prior to proceeding with the total knee arthroplasty on her right side today. Procedure in Detail: This patient was seen preoperatively and evaluated for knee pain which was refractory to numerous nonoperative treatment modalities. Their pain correlated with radiographic changes demonstrating significant degeneration in the knee joint. The risks and benefits of continued nonoperative management versus operative management were discussed at length and all of the patient?s questions were answered. Additional educational materials providing further details beyond our discussion in clinic were provided via a publicly available patient education video which included the incidence of medical complications associated with total knee arthroplasty, reasons for revision following total knee arthroplasty, and patient satisfaction rates following total knee arthroplasty. That video can be accessed at [email or web address] . With this understanding of the risks inherent to the procedure, the patient elected to move forward with operative management. Following preoperative optimization, the patient was scheduled for surgery. The patient was met in the preoperative holding area the day of the procedure and all questions were answered. The patient?s nares were swabbed with betadine in order to decolonize them from MRSA. Informed consent was signed and the right limb was marked with indelible ink.? The left limb was also marked with the letters JESSICA to indicate that only a manipulation was to be performed on that side. The patient was brought back to the operating room where anesthesia was induced. The patient was transferred to the operating table and all bony prominences were padded. The operative site was prepped and draped in the usual sterile fashion. A second prep stick was utilized following drape placement. The incision was marked corresponding to the medial aspect of the tibial tubercle and the patella. Ioban was wrapped circumferentially around the knee. Prior to incision, tranexamic acid and cefazolin were administered. Templating images were displayed. A timeout procedure was performed verifying the patient?s identity, medical comorbidities, allergies, relevant medications, anesthesia type and the surgical plan. All present were in agreement. The assistance of a physician distribution center assistant was required for positioning, room setup, soft tissue retraction and wound closure. Without this assistance, the procedure would have been significantly more challenging and time consuming.?? The tourniquet was inflated prior to incision. I made an anterior incision over the knee, dissected through the subcutaneous tissues and identified the lateral border of the VMO. Medial and lateral soft tissue flaps were developed. A medial parapatellar arthrotomy was performed ensuring that adequate capsular tissue would remain for closure at the conclusion of the procedure. The hip was brought into extension and the medial soft tissues were released off the joint line of the tibia. Tissue overlying the distal anterior femur was released to allow for later assessment for anterior notching but left in place. A portion of the retropatellar fat pad was excised while protecting the patellar tendon. The patella was everted. The patella was resurfaced as I found a large flap of cartilage which after removal left a large defect and a step-off. Osteophytes were excised and a lateral facetectomy was performed. The patella was released from its everted position.?? I flexed the knee to 90 degrees and placed retractors to allow access to the notch. An opening reamer was used to gain access to the femoral canal and an intramedullary familia was introduced into the canal. Diaphyseal fit was obtained in order to allow a distal femoral resection at 5 degrees relative to the anatomic axis, thereby aiming to achieve mechanical alignment of the eventual implant. A +0 resection was planned and assessed using an jose wing. I then made the cut using a sagittal saw. This provided additional access to the femoral notch. The ACL and PCL were excised. Retractors were placed on the lateral and medial tibia. I hyperflexed the knee while externally rotating it to sublux the tibia anteriorly. I placed a PCL retractor posteriorly and used this to provide additional anterior subluxation. The remainder of the PCL root was released. An intramedullary reamer was used in the ACL footprint to provide access to the tibial canal. An extramedullary guide was positioned to allow a resection perpendicular to the anatomic and mechanical axes of the tibia, thereby aiming to achieve mechanical alignment of the eventual implant. A +2 resection off the medial tibia was planned and the tibial cutting jig was pinned in place. I evaluated the cut depth, varus-valgus alignment and slope of the planned tibial resection and deemed them satisfactory. I cut the tibia with a sagittal saw while using retractors to protect the MCL, patellar tendon, and posterolateral structures.? The knee was repositioned in extension and the Fuzion soft tissue balancing gauge was introduced. This demonstrated that it was challenging to insert with the minimal cuts that I had initially performed. I had anticipated that her soft tissues would expand significantly to accommodate a larger polyethylene and had therefore minimize my bone cuts. I at this point therefore took an additional 2 mm off the tibia to expand the extension gap. This was insufficient so I took another 2 mm. At this point I could get a 10 mm spacer block in place however I noted significant medial tightness. I therefore performed a posterior medial release and a medial reduction osteotomy. There was still significant asymmetry medially relative to laterally so I recut the tibia with a 2 degree varus cut guide. After the varus recut the gap symmetry was improved when measuring it with the gap hematology specialist. It would now open to 7 on both the medial and lateral sides. When 40 pounds of force was applied to the Fuzion device, the extension gap opened to 12 mm. I moved the knee into 90 degrees of flexion, and the Fuzion device was recalibrated by removing a 9 mm myke to allow assessment of the flexion gap. The Fuzion was placed perpendicular to the resected surface of the tibia and the resected surface of the distal femur. Forty pounds of traction was applied to match the tension of the extension gap. This externally rotated the femur to 0 degrees. Pins were placed in the 12 mm holes. The measured resection guide was placed over the pins to allow sizing. Appropriate sizing was determined and a 4-in-1 block was placed. This was double checked using the Fuzion device to ensure that it would open to an equal distance as the extension gap when the same amount of force was applied. The Fuzion block was also used to assess flexion gap symmetry. An jose wing was used to ensure there would be no anterior notching. Retractors were placed to protect the soft tissues during resection. Captured cuts were performed with a sagittal saw for the anterior and posterior femur as well as the corresponding chamfers.? Trial components were placed and the construct was assessed. Range of motion was assessed by ensuring the knee could achieve full extension and assessing maximum passive knee flexion by elevating the femur and allowing the heel to passively fall towards the buttock. Gap symmetry was assessed by stressing the medial and lateral compartments in both extension and flexion. Laxity was assessed in both extension and flexion and the polyethylene trial was adjusted with shims as necessary. Patellar tracking was assessed with knee flexion. Once satisfied with the construct, I moved forward with implant insertion. Lug holes were drilled in the femur and the tibia was prepped ensuring appropriate sizing and rotation relative to the tibial tubercle.?? The bony ends were irrigated and cement was prepared. Portions of the anterior chamfer cut were utilized as cement restrictors in the femur and tibia where intramedullar rods had been utilized. Cement was placed on the entirety of the undersurface of both the tibial and femoral components. Cement was placed onto the dry tibia and pressurized into the cancellous bone. I impacted the tibial component into place. Cement was removed. The tibia was reduced underneath the femur and placed cement onto the dry surface of the resected femur. I placed the femoral component as well as the intended polyethylene trial. Cement was removed from around the femur. I brought the knee into extension and manually pressurized the construct by pushing on the heel while the cement dried. The knee was bathed in a dilute mixture of betadine and peroxide. A mixture of Ropivacaine, Epinephrine, Clonidine and Toradol was infiltrated throughout the soft tissues into structures including the VMO, patellar tendon, quadriceps tendon, MCL and femoral periosteum. A low adductor canal block was also performed using this mixture unless one had been placed preoperatively by anesthesia. The knee was copiously irrigated with pulse lavage. Once cement had been allowed to dry the knee was again trialed. Range of motion was assessed by ensuring the knee could achieve full extension and assessing maximum passive knee flexion by elevating the femur and allowing the heel to passively fall towards the buttock. Gap symmetry was assessed by stressing the medial and lateral compartments in both extension and flexion. Laxity was assessed in both extension and flexion and the polyethylene trial was adjusted with shims as necessary. Patellar tracking was assessed with knee flexion. The tourniquet was let down and the polyethylene trial was removed. I inspected the knee inspected for excess cement and any residual bleeding. Once hemostasis was achieved I inserted the final polyethylene and ensured appropriate engagement of the dovetail locking mechanism.?? The arthrotomy was closed with absorbable interrupted suture ensuring that this extended to the top of the arthrotomy. This was backed up with running barbed suture throughout the arthrotomy. The skin was closed with 2-0 and 3-0 sutures. Surgical glue was applied and a soft dressing was placed.?The sponge, instrument and needle counts were reported as being correct at the end of the case.??No obvious complications occurred. The patient was transferred from the operating table back to a stretcher. The patient emerged from anesthesia without difficulty and was taken to the PACU in a stable condition.? Plan for aftercare: Weightbearing as tolerated Mobilization as soon as the patient has recovered from anesthesia. If physical therapists are unavailable at the time the patient is ready to ambulate, then nursing staff should help patient ambulate Aspirin 81 twice per day for DVT prophylaxis Multimodal pain regimen with no IV opioids ordered No NSAIDs given her renal dysfunction Anticipate discharge home tomorrow Follow up at [facility] in 2 weeks Detailed postoperative instructions available at [email or web address]
[2024-05-09] MEDS: OXYCODONE IR 5 MG TABLET PO ×3 (12:20→20:25)
[2024-05-09] MEDS: LACTATED RINGERS 1,000 ML 100 ML IV (14:35)
[2024-05-09] MEDS: ACETAMINOPHEN 325 MG TABLET 650 MG PO ×2 (17:59→23:35)
--- NOTE | 2024-05-09 18:18 | PM.PN.1 ---
Subjective Subjective Interval history: Amber is resting comfortably in bed at this time. She has her ice machine in place. She has intact plantar flexion and dorsiflexion her hallux and ankle and a well-perfused foot. Her dressing is clean dry and intact. We will plan for her to mobilize and discharge home tomorrow morning. She should receive all of her baseline medications while she is here in the hospital. Exam Vital Signs (past 8 hours): - 05/09/24 10:44 05/09/24 10:49 05/09/24 10:54 Temperature 97 F L Pulse Rate 91 H 93 H 90 Respiratory Rate 18 14 13 Blood Pressure 114/61 102/54 L 107/51 L Pulse Oximetry 98 98 98 Oxygen Delivery Method Room Air Room Air Room Air Oxygen Flow Rate 05/09/24 11:20 05/09/24 11:35 05/09/24 11:50 Temperature 97.2 F L 97.2 F L Pulse Rate 83 85 78 Respiratory Rate 16 18 16 Blood Pressure 129/76 116/83 106/54 L Pulse Oximetry 96 99 99 Oxygen Delivery Method Oxygen Flow Rate 0 0 05/09/24 12:20 05/09/24 13:20 05/09/24 14:20 Temperature Pulse Rate 81 80 84 Respiratory Rate 16 16 16 Blood Pressure 116/86 127/72 127/77 Pulse Oximetry 99 99 98 Oxygen Delivery Method Oxygen Flow Rate Oxygen Delivery Method Room Air Oxygen Flow Rate 0 PFSH Medical History Hemorrhage of vocal cord Osteoarthritis Cognitive changes Mild cognitive impairment TBI (traumatic brain injury) (2009) History of multiple pulmonary nodules Diverticulitis Auditory hallucination ADHD Anxiety Depression PTSD (post-traumatic stress disorder) Kidney stone Chronic kidney disease (CKD) Acid reflux PFO (patent foramen ovale) Elevated blood pressure reading without diagnosis of hypertension HLD (hyperlipidemia) Asthma Memory deficit Fibromyalgia Surgical History Status post left knee replacement (09/2023) Hx of parathyroidectomy (12/17/20) Hx of tonsillectomy H/O: hysterectomy (2012) History of gynecologic surgery History of 2 sections Social History household members: friend(s) Smoking Status: Never smoker alcohol intake: current Assessment & Plan Time-Based Coding :: [TOTAL MINUTES] spent with patient and on the chart (including review of chart, obtaining history, exam, reviewing outside data, placing orders, documenting exam and treatment plan, and counseling patient) on [DATE]. Quality VTE Deep Vein Thrombosis/Pulmonary Embolism Present on Admission: No
[2024-05-09] MEDS: TOPIRAMATE 25 MG TABLET PO (20:24)
[2024-05-09] MEDS: DOCUSATE 100 MG CAPSULE PO (20:24)
[2024-05-09] MEDS: PANTOPRAZOLE DR 20 MG TABLET PO (20:24)
[2024-05-09] MEDS: ASPIRIN EC 81 MG TABLET PO (20:24)
[2024-05-09] MEDS: ATORVASTATIN 20 MG TABLET 10 MG PO (20:25)
[2024-05-10] MEDS: OXYCODONE IR 5 MG TABLET PO ×3 (00:52→10:10)
[2024-05-10] MEDS: PANTOPRAZOLE DR 20 MG TABLET PO (05:18)
[2024-05-10] MEDS: ACETAMINOPHEN 325 MG TABLET 650 MG PO (05:18)
[2024-05-10 05:31] VITALS: BP 115/57; PULSE 67; RESP 18; TEMP 36.7; O2SAT 92
[2024-05-10 06:14] LABS: Hematocrit 36.5 % (36-46); Hemoglobin 12.5 g/dL (12.0-16.0)
--- NOTE | 2024-05-10 07:55 | PC.NURSE ---
Addendum entered by Artemio Posada R.N. 05/10/24 11:25: Pt readying for d/c. IV d/c'd per protocol, d/c instructions given to Pt and . Rne PROPULSION GENERATOR REPAIRER to escort Pt to car via w/c. Original Note: Wakes easily to name, states comfort and that Ice device working well. good pedal pulses. dressing cdi.
[2024-05-10 08:00] VITALS: BP 125/66; PULSE 73; RESP 16; TEMP 36.8; O2SAT 99
--- NOTE | 2024-05-10 08:10 | P.DS_ITS ---
History of Present Illness History of Present Illness Date Patient Seen: 05/10/24 Time Patient Seen: 08:10 Chief complaint: Knee pain Narrative: Patient states her knee pain is mild. Her boyfriend's home to help her. Otherwise without complaints. Discharge Providers Provider Discharge Date: 05/10/24 Primary care physician: Chloe Sena PA-C Consults: 05/09/24 06:00 Consult to Anesthesiology Routine Comment: Consulting Provider: Anesthesiologist Reason for consultation: Regional block for post operative pain control 05/09/24 13:34 Consult to Discharge Planning Routine Comment: Consult to Physical Therapy Evaluate & Treat Comment: Physician Instructions: post op MAURILIO protocol 05/09/24 14:18 Consult to Discharge Planning Routine Comment: Consult to Physical Therapy Evaluate & Treat Comment: Physician Instructions: postop TKA protocol Discharge provider: Abel Gaona PA-C Summary Hospital Course Discharge Diagnosis: Right knee osteoarthritis Hospital Course: Right total knee arthroplasty Same procedure as scheduled: Yes Surgeon: Aj Arreaga 3Rd Grade Reading Teacher: Saima Marquez Anesthesia Type: Spinal, Sedation, Peripheral nerve block and Local Operative Notes Estimated Blood Loss (mL): 200 Procedure in detail: Right Gap-Balanced Jostin Persona Medial-Congruent Primary Total Knee Arthroplasty Manipulation under anesthesia of left total knee arthroplasty Implants: * Size 5 Cruciate Retaining Femoral Component * Size C Tibial Component with 14 x 30 stem extension * Size 14 Medial Congruent Polyethylene Insert * 32 mm Patella Patient admitted for the above-mentioned procedure. Patient consented to the same. Patient underwent right total knee arthroplasty May 09, 2024. Patient back in her room recovering well as in stable condition. Patient has been up to use the bathroom twice overnight. She has a boyfriend home to assist her. Patient has already picked up her pain meds. She will mobilize with physical therapy and be discharged home after physical therapy if safe for home environment. Exam Vital Signs (past 8 hours): - 05/10/24 05:31 Temperature 98.1 F Pulse Rate 67 Respiratory Rate 18 Blood Pressure 115/57 L Pulse Oximetry 92 Oxygen Delivery Method Room Air Oxygen Flow Rate 0 Narrative Exam Narrative: Patient resting comfortably in bed in no apparent distress. Dressing is clean, dry and intact. Motor functions intact bilateral lower extremities. Const General: cooperative and comfortable Nutritional Appearance: well nourished Orientation: alert Resp Effort & Inspection: normal respiratory effort and able to speak in complete sentences Objective Labs 05/10/24 05:26 Labs: Laboratory Results - last 24 hr 05/10/24 05:26 Hgb 12.5 Hct 36.5 PFSH Medical History Hemorrhage of vocal cord Osteoarthritis Cognitive changes Mild cognitive impairment TBI (traumatic brain injury) (2009) History of multiple pulmonary nodules Diverticulitis Auditory hallucination ADHD Anxiety Depression PTSD (post-traumatic stress disorder) Kidney stone Chronic kidney disease (CKD) Acid reflux PFO (patent foramen ovale) Elevated blood pressure reading without diagnosis of hypertension HLD (hyperlipidemia) Asthma Memory deficit Fibromyalgia Surgical History Status post left knee replacement (09/2023) Hx of parathyroidectomy (12/17/20) Hx of tonsillectomy H/O: hysterectomy (2012) History of gynecologic surgery History of 2 sections Social History household members: friend(s) Smoking Status: Never smoker alcohol intake: current Discharge Assessment & Plan Assessment and Plan Assessment: Stable status post right total knee arthroplasty Plan of Treatment: * Weightbearing as tolerated * Mobilization as soon as the patient has recovered from anesthesia. If physical therapists are unavailable at the time the patient is ready to ambulate, then nursing staff should help patient ambulate * Aspirin 81 twice per day for DVT prophylaxis * Multimodal pain regimen with no IV opioids ordered * No NSAIDs given her renal dysfunction * Anticipate discharge home tomorrow * Follow up at [facility] in 2 weeks * Detailed postoperative instructions available at [email or web address] * Discharge home today after physical therapy if safe for home environment. Discharge Plan Discharge Plan Patient Disposition: Home Discharge orders & Medications Discharge Orders: Discharge (Order); Ordered 05/10/24 Ordered By: Abel Gaona Prescriptions: New aspirin 81 mg Tablet,Delayed Release (Dr/Ec) 81 mg PO BID Qty: 60 0RF Continued ziprasidone HCl 80 mg Capsule 80 mg PO BEDTIME Rx Instructions: give with food (meal/snack) hydroxyzine pamoate 100 mg Capsule 100 mg PO BEDTIME atorvastatin 10 mg Tablet 10 mg PO BEDTIME topiramate 25 mg Tablet 25 mg PO BEDTIME folic acid 400 mcg Tablet 0.4 mg PO BEDTIME acetaminophen 500 mg Tablet 500 - 1,000 mg PO Q6H PRN (Reason: Pain) albuterol sulfate 90 mcg/actuation Hfa Aerosol Inhaler 2 puff INHALATION Q4-6H PRN (Reason: Shortness Of Breath) omeprazole 20 mg Tablet,Delayed Release (Dr/Ec) 20 mg PO BEDTIME cholecalciferol (vitamin D3) [Vitamin D3] 50 mcg (2,000 unit) Capsule 50 mcg PO DAILY Follow up/Referrals: Chloe Sena PA-C [Primary Care Provider] - Aj Arreaga MD [Physician] - (2 weeks as scheduled) Diet/Activity/Treatments Diet: Diet as Tolerated Activity: Weight-bearing as tolerated Cold/Heat Therapy: Ice to knee as directed Other treatments: Weightbearing as tolerated Mobilization as soon as the patient has recovered from anesthesia. If physical therapists are unavailable at the time the patient is ready to ambulate, then nursing staff should help patient ambulate Aspirin 81 twice per day for DVT prophylaxis Multimodal pain regimen with no IV opioids ordered No NSAIDs given her renal dysfunction Anticipate discharge home tomorrow Follow up at [facility] in 2 weeks Detailed postoperative instructions available at [email or web address] Skin/Wound/Dressing Care Dressing: Keep dressing clean and dry Visit Report/Discharge Packet Instructions: DI for Knee Replacement Stand Alone Forms: Patient Portal/API, Surgery Discharge Discharge Data Primary Care Provider: Chloe Sena Attending Provider: Aj Arreaga Quality VTE Deep Vein Thrombosis/Pulmonary Embolism Present on Admission: No
[2024-05-10] MEDS: TOPIRAMATE 25 MG TABLET PO (09:25)
[2024-05-10] MEDS: DOCUSATE 100 MG CAPSULE PO (09:25)
[2024-05-10] MEDS: ASPIRIN EC 81 MG TABLET PO (09:25)
--- NOTE | 2024-05-10 09:35 | PT.IIE ---
Current Diagnoses Unilateral primary osteoarthritis, right knee (05/09/24) Surgery Performed Operation Date: 05/09/24 07:45 Actual Procedures p Total Knee Arthroplasty(Right) - Aj Arreaga MD Surgical History (Last Reviewed 05/09/24 @ 06:47 by Rehana Denton, RN) H/O: hysterectomy (2012) History of 2 sections History of gynecologic surgery Hx of parathyroidectomy (12/17/20) Hx of tonsillectomy Status post left knee replacement (09/2023) Medical History (Last Reviewed 05/09/24 @ 06:47 by Rehana Denton, RN) Acid reflux ADHD Anxiety Asthma Auditory hallucination Chronic kidney disease (CKD) Cognitive changes Depression Diverticulitis Elevated blood pressure reading without diagnosis of hypertension Fibromyalgia Hemorrhage of vocal cord History of multiple pulmonary nodules HLD (hyperlipidemia) Kidney stone Memory deficit Mild cognitive impairment Osteoarthritis PFO (patent foramen ovale) PTSD (post-traumatic stress disorder) TBI (traumatic brain injury) (2009) Physical Therapy Inpatient Evaluation/Re-Eval M1 PT/OT-IP Prior Functional Status Start: 05/10/24 12:23 Freq: NEEDED Status: Active Protocol: Document 05/10/24 09:35 AB (Rec: 05/10/24 12:37 AB [id number]) Medical Review Prior Functional Status Medical History Reviewed Yes Communication able to make needs known Mobility and Gait pt stated that she was modified independent with all mobilities and ambulation using a SPC but occasionally ambulates without AD indoors Social History Household Members friend(s) Living Arrangements House Number of Floors (Floors) One Floor Number of Stairs To Enter/Railing? 2 platform steps to enter the house Home Environment Standard Height Toilet,Walk in Shower Home Equipment Front Wheel Walker,Straight Cane,Shower Seat with Backrest ,Hand Held Shower Additional Social History Comment pt's friend/roommate teresa will assist pt at home pt sleeps on her recliner M2 PT-IP Current Condition Start: 05/10/24 12:23 Freq: NEEDED Status: Active Protocol: Document 05/10/24 09:35 AB (Rec: 05/10/24 12:37 AB [id number]) Physical Therapy Current Condition Current Condition Evaluation Date 05/10/24 Treatment Diagnosis s/p R TKA; difficulty in walking Onset Date 05/09/24 M3 PT-IP Subjective Start: 05/10/24 12:23 Freq: NEEDED Status: Active Protocol: Document 05/10/24 09:35 AB (Rec: 05/10/24 12:37 AB [id number]) Subjective Physical Therapy Visit Type Type Initial Evaluation Visit Start Time 09:35 Visit Stop Time 10:15 Number of MEDICAL DOCTOR MD Visits 0 Physical Therapy Visit Comments Patient Comments agreeable to do PT Therapy Pain Assessment Pain When Pain Assessed At Rest Pain Present Pain Present Pain Reported Location Right Knee Intensity 5 Scale Used Numeric (0 - 10) Pain Behaviors Guarding Pain Management Techniques Apply Cold,Distraction, Modification of Treatment,Re- positioning,Timing of Activity with Medications M4 PT-IP Mobility and Gait Start: 05/10/24 12:23 Freq: NEEDED Status: Active Protocol: Document 05/10/24 09:35 AB (Rec: 05/10/24 12:37 AB [id number]) PT-Bed Mobility Assessment Supine to Sit Supine to Sit Standby Assistance PT-Transfer Assessment Sit to and From Stand Sit to and from Stand Contact Guard Assistance,1 Person Assistance,Use of Upper Extremities Equipment Transfer Assistive Device Gait Belt,Front Wheeled Walker Orthotic/Prosthetic Devices or Brace: No Transfers Transfer Destination Toilet Transfer Technique ambulated Transfer Ability Level of Assist Standby Assistance,Contact Guard Assistance,1 Person Assistance,Use of Upper Extremities Comments Mobility Comments pt supine in bed and pt's friend in room with pt. obtained PLOF and home set up. post-op folder provided and reviewed contents. educated on HEP. BP: 123/68 pt completed supine to sit SBA . able to sit on EOB SBA. pt requested to use the toilet. sit to stand CGA and ambulated to the toilet using FWW CGA and cues. pt completed sit to stand from the toilet using grab bar CGA. pt ambulated to the sink using FWW SBA to CGA. able to maintain standing using FWW/counter for support SBA while completing handwashing. pt ambulated to the chair using FWW SBA. caregiver traiing conducted. educated pt's frined on how to use safety belt and how to assist pt. pt's friend was able to put safety belt on and assisted pt with sit to stand from the chair CGA. pt ambulated in the hallway using FWW CGA ~ 30 ft and pt's friend was able to assist pt. pt completed up/down step using FWW CGA to min A with PT instructing on first attempt. pt completed again with friend assisting and completed . pt's friend was able to assist and cue pt. pt ambulated back to her room using FWW SBA to CGA. pt sat on the chair and positioned. call light and table placed within reach. pt and friend without further concerns. Gait Assessment Gait Gait Assistance Required: Standby Assistance,Contact Guard Assist Distance (Feet) 30 Able to Maintain Weight Bearing Status Yes During Gait Assistive Devices Assistive Device Gait Belt,Front Wheeled Walker Orthotic/Prosthetic Devices or Brace: No Gait Deviations General Gait Pattern Antalgic,Decreased Stride Length,Decreased Feet Clearance Factors Limiting Gait Function Factors Limiting Gait Function Decreased Activity Tolerance, Decreased Strength,Limited Range of Motion,Pain,Poor Balance,Poor Safety Awareness Stair Climbing Assessment Evaluation Level of Assist On Stairs Contact Guard Assistance, Minimal Assistance,1 Person Assistance Devices Stair Climbing Assistive Devices Front Wheel Walker Technique/Endurance Stair Climbing Direction Ascend and Descend Stair Climbing Technique Step to Step Number of Steps Climbed 1 Query Text: Stair Climbing Set # Repetitions (reps) 2 PT-Balance Assessment Sitting Balance and Reactions Static Sitting Balance Ability Normal Dynamic Sitting Balance Ability Good Standing Balance and Reactions Static Standing Balance Ability Good Dynamic Standing Balance Ability Fair Device Used FWW M5 PT-IP Objective Assessments Start: 05/10/24 12:23 Freq: NEEDED Status: Active Protocol: Document 05/10/24 09:35 AB (Rec: 05/10/24 12:37 AB [id number]) Orientation Orientation/Cognition Level of Alertness Alert Orientation Name,Place,Situation Language Function Ability No Deficits Noted Safety Awareness Understands Safety Issues Memory Description No Deficits Noted Gross Range of Motion Lower Extremity ROM Impairments R knee flexion: ~ 50 deg R knee extension: ~ 10 deg less to 0 Strength Lower Extremity Strength Assessment Right Impaired Hip 4-/5 Knee 3+/5 Coordination Assessment Gross Coordination Gross Coordination WNL Sensation Assessment Sensation Gross Sensation WNL Muscle Tone Muscle Tone WNL Yes M6 PT-IP Treatment Start: 05/10/24 12:23 Freq: NEEDED Status: Active Protocol: Document 05/10/24 09:35 AB (Rec: 05/10/24 12:37 AB [id number]) Physical Therapy Treatment Exercises Exercises Heel Slides Education Education Provided Precautions,Weight Bearing Status,Post-Op Packet,Safety M7 PT-IP Assessment and Plan Start: 05/10/24 12:23 Freq: NEEDED Status: Active Protocol: Document 05/10/24 09:35 AB (Rec: 05/10/24 12:37 AB [id number]) PT Summary Assessment and Plan Potential Rehabilitation Potential Good Status of Condition at Evaluation Stable Summary Impairments Pain,ROM,Strength,Balance, Coordination,Bed Mobility, Transfers,Gait,Activity Tolerance Assessment Summary pt is a 64 y/o F s/p R TKA POD 1. pt is WBAT on RLE. pt requiring SBA to CGA with transfers and mobility, CGA to min A for stair climbing. caregiver training conducted and pt's friend was able to assist pt safely. pt has outpt PT set up. pt may go home when medically stable. Goals Bed Mobility Goal Independent Transfer Goal Independent,Front Wheeled Walker Gait Goal Independent,Front Wheel Walker Gait Distance 300 Other Goals up/down 2 platform steps using FWW mod I Days to Meet Goals 5 Frequency of Treatment Frequency Of Treatment Twice a Day Treatment Plan Physical Therapy Treatment Plan Bed Mobility Training,Transfer Training,Gait Training, Therapeutic Exercise,Balance Retraining,Post Op Education, Discharge Planning,Hot or Cold Pack,Neuromuscular Re-ed, Coordination Retraining,Manual Therapy Weight Bearing Status Weight Bearing Status Weight Bear as Tolerated Allowed Weight Bearing Amount (enter % RLE WBAT or #) (%) Recommendations To Nursing Amount of Assist Needed 1 Person Assist Discharge Recommendations PT Discharge Recommendations Home with Assistance, Outpatient PT Transportation Needs at Discharge Private Vehicle
--- NOTE | 2024-05-10 11:54 | CM.DANOTE ---
Patient is a 64 yo female who was admitted [facility] on 05/09/24 for RTKA. Pt has [employer] and [employer] for insurance and her PCP is Chloe Sena. EMR was reviewed. Per Ortho, pt tolerated procedure well and to work with PT and then discharge home today. Per PT, recommending home with outpt PT. Per RN, pt independent and discharge instructions provided and friend arrived to provide transport home today and no concerns noted. Patient lives in [facility] and independent at baseline and has FWW and some DME at home for use after discharge and has supportive local friends and family that can assist. Pt preference is home today via friend POV and does not anticipate any further needs. ESSIE Woods Discharge Planning/Care Management Pre-Anesthesia Assessment Start: 05/08/24 08:49 Freq: Status: Complete Protocol: Document 05/08/24 08:49 LB (Rec: 05/08/24 09:12 LB [id number]) Pre-Anesthesia Assessment PAC Comment Phone update - nothing has changed since last PAC call Preferred Name Prudence Patient Information Reviewed Via Phone Assessment Assessment Completed With Patient Diagnostic Results BMP/CMP Comment 03/18/2024 at . Primary Care Provider Chloe Sena Medical Clearance Received Yes Seen Specialist in Last 12 Months Yes Specialist Seen Orthopedist Primary Language Prydeinig Preferred Language Prydeinig Supervisor Prepress Required No Height 152.4 cm Weight 86.183 kg Body Mass Index (BMI) 37.0 Hearing Ability Normal Visual Assist Glasses Dentition Type Teeth, Natural Present Other Aids Difficulty with reading and writing Comment glasses for reading only. Hx Anesthesia Reactions Yes: slow to waken. Hx Family Anesthesia Reaction No Hx Malignant Hyperthermia No Hx Blood Transfusions No Anesthesia Review Requested No Juvenile Court Judge No alcohol intake current alcohol intake frequency holidays/special occasions only Smoking Status Never smoker Substance Use Type does not use Musculoskeletal Symptoms Difficulty Walking,Joint Pain History of Falling (Recent or History of No ) Patient is completely paralyzed or No completely immobile Prosthesis or Orthotic Device Cane Mental Status Oriented to own ability Is patient on oxygen? No Does patient have TURNER/SOB No Hx Sleep Apnea No CPAP/BIPAP use not prescribed Currently Taking a Beta Luis A No Can You Climb a Flight of Stairs Without No SOB Hx Chest Pain No Hx SOB No Hx Syncope or Dizziness No Anti-Coagulant Therapy No Has a Plastic Mould Maker No Cardiac Testing Yes: EKG 08/08/2023 Hx Pacemaker/ICD No Pacemaker Rep Required? No Cardiac Clearance Received Not Applicable Gastrointestinal Symptoms Reflux Urinary Catheter Present No Hx Urinary Self Catheterization No Diabetes No Patient No Lactating No Hx Drug Resistant Organism No Presence of External or Internal Medical No Devices Have you had any close contact with No someone diagnosed with COVID-19? Are you experiencing any of these No symptoms symptoms? Received a COVID vaccine? Yes Lives With friend(s) Current Living Arrangements House Number of Floors (Floors) One Floor Number of Stairs To Enter/Railing? 2 steps with no railing to enter home Support System Friend(s) Does the Patient Have Assistance After Yes Surgery Patient Discharge Plan Description Return Home Feels Safe in Current Environment Yes Do you have a plan to hurt yourself or No Plan others? Do You Have Any Spiritual Beliefs That No May Affect Your HC Choices? Do You Have Any Cultural Practices That No May Affect Your HC Choices? Emergency Contact Name Emily (daughter) Samy Ovalle (friend) Emergency Contact [phone] Advance Directives? No Power of [employer] Bookkeeper No PAC Instructions Assistance for 24 hours post- op,Do not shave/clip surgical site,Durable medical equipment ,Medications to take/avoid,No ETOH/petroleum product on skin DOS,NPO,Pre-surgical wash, Sturdy shoes/comfortable clothes,Do not bring valuables and remove jewelry
== END 2024-05-10 11:35 | disposition home or self-care (01) ==
LOC: OR 06:07 → AC 06:09
PROVIDERS: Family Provider Family Medicine; PCP Physician Assistant; Referring Provider Nurse Practitioner Family; Visit Provider Orthopaedic Surgery Adult Reconstructive Orthopaedic Surgery
PROC: 0SRC0JZ Replacement of Right Knee Joint with Synthetic Substitute, Open Approach (ICD-10-PCS; CPT 27447; principal; 2024-05-09 07:45)
DX: M17.11 Unilateral primary osteoarthritis, right knee (principal); M25.761 Osteophyte, right knee
CPT/HCPCS: 27447; 36415; 73560; 85014; 85018; 97161; 97530; C1776; C9290; J0171; J0690; J1170